=== PATIENT | male | born 1960 | race Caucasian/White ===

== ENCOUNTER 2024-12-26 08:33 | Emergency (ER) | payer OTHER, SELFPAY ==
[2024-12-26 08:45] VITALS: BP 158/92; PULSE 80; RESP 16; TEMP 36.7; O2SAT 98
--- NOTE | 2024-12-26 08:53 | ED.URI ---
HPI - URI/Sore Throat General Chief Complaint: Upper Respiratory Infection Stated Complaint: Allergies/SOB Time Seen by Provider: 12/26/24 08:53 Source: patient Mode of arrival: ambulatory Limitations: no limitations History of Present Illness HPI Narrative: 64 yo M presents with c/o cough, chest congestion for 5 days. SOB with exertion for 2 days. Reports history of bronchitis. In the past has been prescribed a albuterol inhaler which has helped. Patient is out of albuterol inhaler. Not taking any uuyj-agp-lwynrbh medications. Patient states Smoking a cigarette helps some of the congestion come up from chest. Afebrile. All systems reviewed and negative except as noted above. Related Data Allergies Allergy/AdvReac Type Severity Reaction Status Date / Time No Known Allergies Allergy Verified 12/26/24 08:56 [facility] Comments At time of signature, agree with nursing past medical, surgical, social and family history. There is no relevant family history pertinent to the presenting complaint. Exam Narrative: GENERAL: This is a well-nourished, well-developed patient, in no apparent distress. HEAD: normocephalic, atraumatic. EYES: PERRL. Sclera clear/white. Vision is grossly intact. EARS: External ears normal, auditory canals clear and without drainage, TMs normal without perforation. Hearing grossly intact. NOSE: External nose normal with clear nasal drainage THROAT: Mucous membranes moist, Erythematous without swelling or exudates NECK: Neck supple, non-tender without lymphadenopathy, masses or thyromegaly. CARDIOVASCULAR: Regular rate and rhythm without murmurs, gallops, or rubs. RESPIRATORY: Rales and coarse throughout all lung henry. Breath sounds equal bilaterally. SKIN: warm, Dry, intact with no suspicious lesions or rash, good texture and turgor. NEURO: awake, alert, and oriented to person, place and time. There were no obvious focal neurologic abnormalities. EXTREMITIES: No joint tenderness, effusion, or edema noted. Course Course Level of Care: Express Care Visit Reevaluation(s) Reevaluation #1: continues to have coarse lung sounds expiration throughout all lung henry but improved. Patient reports chest tightness resolved, feeling better. Vital Signs Vital signs: Vital Signs Temperature 36.7 C 12/26/24 08:45 Pulse Rate 80 12/26/24 08:45 Respiratory Rate 16 12/26/24 08:45 Blood Pressure 158/92 H 12/26/24 08:45 Pulse Oximetry 98 12/26/24 08:45 Oxygen Delivery Room Air 12/26/24 08:45 Temperature 36.7 C 12/26/24 08:45 Pulse Rate 80 12/26/24 08:45 Respiratory Rate 16 12/26/24 08:45 Blood Pressure 158/92 H 12/26/24 08:45 Pulse Oximetry 98 12/26/24 08:45 Oxygen Delivery Room Air 12/26/24 08:45 reviewed MDM - URI/Sore Throat MDM Narrative Medical decision making narrative: Patient feeling better after DuoNeb. Patient was offered chest x-ray due to rales on auscultation of but he declined. Will treat with antibiotic as precaution due to lung sounds. Patient is alert, nontoxic. Differential Diagnosis Differential diagnosis: Likely upper respiratory infection, viral infection, bronchitis and other ( Pneumonia) Discharge Plan Discharge Clinical Impression: Acute bronchitis Patient Disposition: Home Condition: Stable Instructions: Antibiotic Form, Acute Bronchitis (ED) Additional Instructions: Take medications as prescribed. Purchase [id number] Mucinex DM and take as directed on packaging. Drink at least 64 oz of water a day. Follow-up with your primary care physician if symptoms are not improving. If you have chest pain or respiratory distress go to the ER. Patient Language: Moroccan Prescriptions: New doxycycline hyclate 100 mg capsule 100 mg PO BID 7 Days Qty: 14 0RF prednisone 20 mg tablet 40 mg PO DAILY 5 Days Qty: 10 0RF albuterol sulfate 90 mcg/actuation HFA aerosol inhaler 2 puff inhalation Q4-6H PRN (Reason: shortness of breath or wheezing) Qty: 8.5 0RF (DME) Aerochamber Plus Z Stat Spacer See Rx Instructions .Route Qty: 1 0RF Rx Instructions: As directed Follow-up/Referrals: [facility] [Primary Care Provider, Medical] Time of Disposition: :23
[2024-12-26] MEDS: IPRATROPIUM 0.5 MG/ALBUTEROL SULFATE 2.5 MG AMPUL.NEB 3 ML INHALATION (09:07)
== END 2024-12-26 09:25 | disposition home or self-care (01) ==
PROVIDERS: Emergency Provider Nurse Practitioner Family
DX: J20.9 Acute bronchitis, unspecified (principal); F17.210 Nicotine dependence, cigarettes, uncomplicated
CPT/HCPCS: 94640; 99213; G0463